=== PATIENT | female | born 1990 | race Caucasian/White ===

== ENCOUNTER 2016-07-24 20:29 | Emergency (ER) | payer MEDICAID ==
[~2016-07-24] VITALS: Ht 167.6 cm; Wt 88.0 kg
[~2016-07-24 20:29] MED LIST: LABE100T2 PO; NOR-0.35 PO; PREN1TAB30 PO
[2016-07-24 20:31] VITALS: BP 155/92; PULSE 79; RESP 16; TEMP 98.4; O2SAT 100
--- NOTE | 2016-07-24 22:23 | PD ---
HPI Chief Complaint: Injury Time Seen by Provider: 22:19 Travel History International Travel<30 days: No Contact w/Intl Traveler<30days: No Traveled to known affect area: No History of Present Illness HPI 26-year-old white female presents to emergency department with complaints of pain in her left second toe. The patient states that the injury occurred today while she was loading a moving truck. She had hit it on the loading ramp in her sandals. Pain is mild. No numbness or tingling. No other injury. PFSH Past Medical History Narrative Medical Hypertension Immunizations Current: Yes Tetanus Vaccination: < 5 Years Influenza Vaccination: Yes ?: Not LMP: now Past Surgical History Surgical History: No Previous Surgery Social History Alcohol Use: No Tobacco Use: No Substance Use: No Allergies-Medications (Allergen,Severity, Reaction): Coded Allergies: No Known Allergies (Unverified , 07/24/16) Reported Meds & Prescriptions Reported Meds & Active Scripts Active Nor-Qd (Norethindrone) 0.35 Mg Tab 0.35 Mg PO DAILY Labetalol Hcl (Labetalol HCl) 100 Mg Tab 100 Mg PO BID Vitamins ( Vit W/ Ferrous Fumara) 1 Tab Tab 1 Tab PO DAILY Review of Systems Except as stated in HPI: all other systems reviewed are Neg Physical Exam Narrative GENERAL: This is a well-nourished, well-developed patient, in no apparent distress. SKIN: No rashes, ecchymoses or lesions. Warm and dry. HEAD: Atraumatic. Normocephalic. EYES: PERRL, EOMI, no discharge or injection. No scleral icterus. EARS: Clear NOSE: Nasal turbinates appear normal. THROAT: Mucosa pink and moist. Airway patent. NECK: Trachea midline. supple, moves head freely. LUNGS: Clear to auscultation. CV: Regular in rhythm. ABDOMEN: Soft nontender. EXT: No clubbing cyanosis or edema. Patient has tenderness to the left second toe. The skin is intact. No ecchymosis. No swelling. Remainder of the foot is unremarkable. Data Data Last Documented VS Vital Signs Date Time Temp Pulse Resp B/P Pulse Ox O2 Delivery O2 Flow Rate FiO2 07/24/16 20:31 98.4 79 16 155/92 100 Room Air Orders Toe (Min 2vws) (07/24/16 22:20) MDM Medical Decision Making Medical Screen Exam Complete: Yes Emergency Medical Condition: Yes Medical Record Reviewed: Yes Interpretation(s) Left second toe: Negative for acute fracture. Differential Diagnosis MDM: High Differential diagnoses: Fracture, sprain, strain, dislocation, contusion, neurovascular injury Narrative Course X-ray of the left second toe is negative for acute bony injury. Diagnosis Primary Impression: Contusion of second toe, left Qualified Code: S90.122A - Contusion of second toe, left, initial encounter Patient Instructions: General Instructions Additional Instructions: Rest. Elevation. Ice packs for the next 3 days. Limited weightbearing. Comfortable shoes with hard soled. 3 Advil every 6 hours. Follow-up with process control supervisor or your doctor in one week. Return to the ER if any problems Disposition: 01 DISCHARGE HOME Condition: Stable Chris Adan Jul 24, 2016 22:23
--- NOTE | 2016-07-24 22:55 | RADRPT ---
EXAM DATE/TIME: 07/24/2016 22:36 [facility] COMPARISON: No previous studies available for comparison. INDICATIONS : Left foot, second digit pain after hitting toe against metal ramp. MEDICAL HISTORY : None. SURGICAL HISTORY : None. ENCOUNTER: Initial ACUITY: 1 day PAIN SCORE: 6/10 LOCATION: Left foot, distal second digit FINDINGS: Examination of the second digit of the left foot demonstrates no evidence of fracture or dislocation. No radiopaque foreign bodies are seen. The soft tissues are intact. CONCLUSION: Negative for fracture or radiopaque foreign bodies. Oneil Lopez MD FACR on July 24, 2016 at 22:53 Board Certified Radiologist. This report was verified electronically.
== END 2016-07-24 23:11 | disposition home or self-care (01) ==
LOC: NEPK 20:29
DX: S90.122A Contusion of left lesser toe(s) without damage to nail, initial encounter (principal); I10 Essential (primary) hypertension; W22.09XA Striking against other stationary object, initial encounter; Y93.E6 Activity, residential relocation; Y92.9 Unspecified place or not applicable; Y99.8 Other external cause status
CPT/HCPCS: 73660; 99283